=== PATIENT | female | born 1980 | race Caucasian/White ===

== ENCOUNTER 2018-11-18 18:45 | Emergency (ER) | payer OTHER ==
[~2018-11-18] VITALS: Ht 160 cm; Wt 81.7 kg
[2018-11-18 19:52] LABS: ABSOLUTE LYMPHOCYTES 1.2 thou/uL (0.8-5.3); ABSOLUTE MONOCYTES 0.5 thou/uL (0.0-1.2); ABSOLUTE NEUTROPHILS 4.9 thou/uL (1.6-8.1); BASOPHILS 0.4 %; EOSINOPHILS 0.2 %; HEMATOCRIT 39.1 % (37.0-47.0); LYMPHOCYTES 17.7 %; MCH 29.3 pg (26.0-34.0); MCHC 33.1 g/dL (28.0-37.0); MCV 88.4 fL (80.0-100.0); MONOCYTES 7.8 %; MPV 9.1 fl. (7.2-11.1); NUCLEATED RBCS 0 /100WBC; PLATELET COUNT* 192 thou/uL (150-400); POLYS 73.9 %; RBC 4.43 mil/uL (4.20-5.00); WBC 6.7 thou/uL (4.0-11.0)
[2018-11-18 19:59] LABS: ANION GAP 8 mmol/L (7-16); BUN 12 mg/dL (7-18); CALCIUM 7.8 mg/dL (8.5-10.1); CHLORIDE 102 mmol/L (98-107); CO2 28 mmol/L (21-32); GLUCOSE 112 mg/dL (70-99); POTASSIUM 3.6 mmol/L (3.5-5.1); SODIUM 138 mmol/L (136-145)
[2018-11-18 20:06] LABS: ALBUMIN 3.3 g/dL (3.4-5.0); ALKALINE PHOSPHATASE 68 U/L (46-116); LIPASE 113 U/L (73-393); SGOT 23 U/L (15-37); SGPT 24 U/L (30-65); TOTAL BILIRUBIN 0.4 mg/dL (<0.1-1.0); TOTAL PROTEIN 6.6 g/dL (6.4-8.2); TROPONIN-I LEVEL <0.06 ng/mL (<0.06)
[2018-11-18 20:54] LABS: URINE BILIRUBIN NEGATIVE (Negative); URINE BLOOD 3+ (Negative); URINE CLARITY CLEAR; URINE COLOR YELLOW; URINE GLUCOSE-RANDOM NEGATIVE (Negative); URINE KETONES NEGATIVE (Negative); URINE LEUKOCYTES-REFLEX NEGATIVE (Negative); URINE NITRITE-REFLEX NEGATIVE (Negative); URINE PROTEIN NEGATIVE (Negative); URINE SPECIFIC GRAVITY <= 1.005 (1.005-1.030)
[2018-11-18 21:01] LABS: BACTERIA-REFLEX >30 Many /HPF (None Seen); CASTS None Seen /LPF (None Seen); CRYSTALS None Seen /LPF (None Seen); MUCUS 0-3 Light strn/LPF (None Seen); SQUAMOUS 0-3 Few /LPF (0-3); URINE RBC >20 Many /HPF (0-2); URINE WBC-REFLEX 0-5 Rare /HPF (0-5)
[2018-11-18] MEDS ORDERED: OMEPRAZOLE40 MG PO (21:16)
[2018-11-18] MEDS ORDERED: CARAFATE 1 GM TA1 GM PO (21:16)
[2018-11-18 21:26] VITALS: BP 108/67
--- NOTE | 2018-11-19 10:33 | EKG ---
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
== END 2018-11-18 21:27 | disposition home or self-care (01) ==
LOC: M.ERS 18:45
PROVIDERS: Personal Emergency Response Attendant
DX: K21.0 Gastro-esophageal reflux disease with esophagitis (principal); Z90.49 Acquired absence of other specified parts of digestive tract; Z98.890 Other specified postprocedural states

== ENCOUNTER 2021-04-27 21:04 | Emergency (ER) | payer OTHER ==
[~2021-04-27] VITALS: Ht 157.5 cm; Wt 68.0 kg
[~2021-04-27 21:04] MED LIST: CARAFATE 1 GM TA1 GM PO; OMEPRAZOLE40 MG PO
[2021-04-27 22:00] LABS: ABSOLUTE BASOPHILS 0.1 thou/uL (0.0-0.2); ABSOLUTE EOSINOPHILS 0.1 thou/uL (0.0-0.7); ABSOLUTE LYMPHOCYTES 3.5 thou/uL (0.8-5.3); ABSOLUTE MONOCYTES 0.8 thou/uL (0.0-1.2); ABSOLUTE NEUTROPHILS 5.4 thou/uL (1.6-8.1); BASOPHILS 1.2 %; EOSINOPHILS 1.1 %; HEMATOCRIT 36.8 % (37.0-47.0); HEMOGLOBIN 12.5 gm/dL (12.0-15.0); LYMPHOCYTES 35.8 %; MCH 30.4 pg (26.0-34.0); MCV 89.4 fL (80.0-100.0); MONOCYTES 7.6 %; MPV 8.2 fl. (7.2-11.1); NUCLEATED RBCS 0 /100WBC; PLATELET COUNT* 274 thou/uL (150-400); POLYS 54.3 %; RBC 4.11 mil/uL (4.20-5.00); RDW-CV 13.1 % (10.5-14.5); WBC 9.9 thou/uL (4.0-11.0)
[2021-04-27 22:03] LABS: CALCIUM 8.5 mg/dL (8.5-10.1); POTASSIUM 4.4 mmol/L (3.5-5.1)
[2021-04-27 22:08] LABS: ALBUMIN 3.5 g/dL (3.4-5.0); TOTAL BILIRUBIN 0.2 mg/dL (<0.1-1.0); TOTAL PROTEIN 7.2 g/dL (6.4-8.2)
[2021-04-27 23:25] LABS: URINE BILIRUBIN NEGATIVE (Negative); URINE BLOOD NEGATIVE (Negative); URINE CLARITY CLEAR; URINE COLOR YELLOW; URINE GLUCOSE-RANDOM NEGATIVE (Negative); URINE KETONES NEGATIVE (Negative); URINE LEUKOCYTES-REFLEX NEGATIVE (Negative); URINE NITRITE-REFLEX NEGATIVE (Negative); URINE PROTEIN NEGATIVE (Negative); URINE SPECIFIC GRAVITY 1.015 (1.005-1.030); URINE UROBILINOGEN 0.2 E.U./dl (0.2-1.0)
[2021-04-28 00:14] VITALS: BP 107/67
== END 2021-04-28 00:14 | disposition home or self-care (01) ==
LOC: M.ERS 21:04
PROVIDERS: Personal Emergency Response Attendant
DX: R53.82 Chronic fatigue, unspecified (principal); Z20.822 Contact with and (suspected) exposure to COVID-19; R53.81 Other malaise; F17.210 Nicotine dependence, cigarettes, uncomplicated; Z98.51 Tubal ligation status; Z98.890 Other specified postprocedural states; Z90.49 Acquired absence of other specified parts of digestive tract